=== PATIENT | female | born 1965 | race Caucasian/White ===

== ENCOUNTER 2016-11-10 08:18 | Day surgery (SDC) | payer OTHER ==
[~2016-11-10] VITALS: Ht 162.6 cm; Wt 74.5 kg
[~2016-11-10 08:18] MED LIST: CARDIZEM CD240 MG PO; CRESTOR10 MG PO; DEMEROL50 MG PO; LISINOPRIL10 MG PO; MYRBETRIQ50 MG PO; PAXIL CR25 MG PO; PRILOSEC20 MG PO; SYNTHROID150 MCG PO; ZETIA10 MG PO
[2016-11-10] MEDS ORDERED: DIOVAN HCT 80-11 TAB PO (09:02)
[2016-11-10] MEDS ORDERED: BENZONATATE200 MG PO (09:03)
[2016-11-10] MEDS ORDERED: PAXIL CR25 MG PO (09:04)
[2016-11-10] MEDS ORDERED: VIBRAMYCIN50 MG PO (09:05)
[2016-11-10 09:09] VITALS: BP 134/80; Ht 162.6 cm; Wt 74.5 kg
[2016-11-10 09:30] LABS: CALC OSMOLALITY 283 mosm/kg (275-300); CALCIUM 8.7 mg/dL (8.5-10.1); CARBON DIOXIDE 29.3 mmol/L (21.0-32.0); CHLORIDE - SERUM 105 mmol/L (98-107); CREATININE - SERUM 0.8 mg/dL (0.6-1.3); GLUCOSE 99 mg/dL (74-106); SODIUM 142 mmol/L (136-145); UREA NITROGEN 15 mg/dL (7-18); eGFR NON AFRICAN AMERICAN 79 mL/min (90-120)
[2016-11-10 09:36] LABS: BASOPHILS 0.3 % (0.0-2.0); EOSINOPHILS 3.2 % (0-7); HEMATOCRIT 37.6 % (36.0-48.0); HEMOGLOBIN 12.1 g/dL (12-16); IMMATURE GRANULOCYTES 0.3 % (0-5); MCH 30.2 pg (26.0-34.0); MCHC 32.2 g/dL (31.0-37.0); MCV 93.8 fL (80.0-100.0); MEAN PLATELET VOLUME 10.3 fL (7.4-10.4); MONOCYTES 10.2 % (2-11); PLATELET COUNT 268 10x3/uL (130-400); RBC 4.01 10x6/uL (4.00-5.40); RDW 13.2 % (11.5-14.5); WBC 5.9 10x3/uL (4.8-10.8)
--- NOTE | 2016-11-10 15:40 | NUR ---
1245 IV DC WITH CATHER TIP INTACT
--- NOTE | 2016-12-01 13:21 | OP ---
PATIENT NAME: NAHUM RENNER MEDICAL RECORD: [id number] :61 LOCATION:D.OPS ADMISSION DATE: SURGEON: ARMANDO MONTAGUE MD DATE OF OPERATION: 11/10/2016 PREOPERATIVE DIAGNOSES: 1. Gastroesophageal reflux disease. 2. Gastric hyperplastic polyps. 3. Hypertension. 4. Hypercholesterolemia. 5. Thyroid disease. 6. Heart disease. POSTOPERATIVE DIAGNOSES: 1. Gastroesophageal reflux disease. 2. Gastric hyperplastic polyps. 3. Hypertension. 4. Hypercholesterolemia. 5. Thyroid disease. 6. Heart disease. PROCEDURE: EGD with biopsy. SURGEON: Armando Montague MD REPORT OF PROCEDURE: An Olympus endoscope was advanced through the mouth and esophagus. We easily passed into the duodenum and could see there are no signs of any masses, lesions or ulcerations present. As we pulled back, I performed a biopsy of the antrum of the stomach, there was an inflammatory area at the antrum of the stomach and this was biopsied. It is unable to tell if this was a sessile mass versus just some gastritis. Over the remainder of the stomach, there were probably upwards of 40 to 50 small gastric polyps. Largest of these was maybe 1-1.5 cm in greatest diameter. One of the polyps which was pedunculated was completely excised and sent for permanent specimen. The remainder were left intact. Inspection of the patient's GE junction showed the Janak fundoplication to be in place and wrapped tightly around the indwelling endoscope. As we pulled back into the patient's distal esophagus, there did not appear to be any ulcerations or inflammation. There was a small waning of gastric tissue extending up the esophagus, so I decided to get a biopsy near this spot. A cold forceps biopsy was performed. As we pulled back at 20 cm, there appeared to be some inflammatory changes on each end of the esophagus. There was no sign of any masses, lesions or diverticula. Attempts were made to biopsy this, but the patient's cough could not be controlled and felt to be unsafe to try biopsy in this coughing patient. At this point, the endoscope and insufflation were removed. COMPLICATIONS: None. CONDITION: Stable. ANESTHESIA: TIVA. BLOOD LOSS: Minimal. TRANSINT:[id number] Voice Confirmation ID: [id number] DOCUMENT ID: [id number] OPERATIVE REPORT [id number] NAHUM RENNER ARMANDO MONTAGUE MD at 1321 CC: EAN CAMILO MD [id number] DICTATION DATE: 11/10/16 1136 INSTRUMENTATION FITTER: 11/10/162002 [facility] [id number] [place] [address]
== END 2016-11-10 13:15 | disposition home or self-care (01) ==
LOC: D.OPS 08:18
PROVIDERS: Anesthesiology
DX: K29.50 Unspecified chronic gastritis without bleeding (principal); K31.7 Polyp of stomach and duodenum; K21.0 Gastro-esophageal reflux disease with esophagitis; I10 Essential (primary) hypertension; E78.00 Pure hypercholesterolemia, unspecified; E07.9 Disorder of thyroid, unspecified; I51.9 Heart disease, unspecified